=== PATIENT | female | born 2000 | race Caucasian/White ===

== ENCOUNTER 2019-04-06 06:11 | Emergency (ER) | payer BC ==
[~2019-04-06] VITALS: Ht 165.1 cm; Wt 68.2 kg
[2019-04-06 06:14] VITALS: BP 118/64; TEMP 97.6
[2019-04-06] MEDS ORDERED: MARLISSA 30 MCG1 TAB PO (06:25)
[2019-04-06] MEDS ORDERED: CELEXA10 MG PO (06:26)
[2019-04-06 07:26] VITALS: PULSE 64
== END 2019-04-06 07:28 | disposition home or self-care (01) ==
LOC: COL.ER 06:11
DX: R51 Headache (principal); F17.210 Nicotine dependence, cigarettes, uncomplicated; Z90.89 Acquired absence of other organs; Z86.69 Personal history of other diseases of the nervous system and sense organs
CPT/HCPCS: J1200; J2765

== ENCOUNTER 2022-07-20 18:05 | Inpatient (IN) | payer BC, MEDICAID ==
[~2022-07-20] VITALS: Ht 165.1 cm; Wt 94.5 kg
[~2022-07-20 18:05] MED LIST: CELEXA10 MG PO; MARLISSA 30 MCG1 TAB PO
[2022-07-23] MEDS ORDERED: PRENATAL (09:31)
[2022-07-23] MEDS ORDERED: FIORICET 325 MG1 TA1 PO (09:32)
[2022-07-25] VITALS (11 sets, daily range): BP systolic 111–134; BP diastolic 64–77; PULSE 75–90; TEMP 97.3–97.9
--- NOTE | 2022-07-25 18:55 | NUR ---
Pt ambulatory to LDR 2 with significant other. Clean gown on. EFM and TOCO explained and applied. Pt denies contractions, leaking of fluids or vaginal bleeding. Reports good movement. Plan of care and cook balloon insertion explained to pt and spouse. Questions answered. VS taken. 1914: IV started and labs obtained via IV site. LR bolus infusing with out difficulty. 1952: at bedside and explained procedure. Pt denies further questions. Pt assisted into footplates for cook balloon insertion. 2004: Cook balloon inserted at this time. 55mls inserted into uterine balloon by provider. 40mls inserted into vaginal balloon by provider. Rest of night plan of care explained by provider. Orders obtained to start pitocin per protocol and go up every 30mins with a max of 10mus/hr. Pt can receive an epidural if laboring. Call provider when balloon falls out but can be thrown away and to start increasing pitocin. 2009: Ultrasound completed by provider. Vertex presentation noted. 2029: Pitocin explained and started at 2mus/hr per protocol.
[2022-07-25 19:45] LABS: BASO % 0.2 % (0.0-2.0); EOS % 0.2 % (0.0-4.0); GRAN # 9.8 K/mm3 (1.4-6.5); GRAN % 74.3 % (42.2-75.2); HEMOGLOBIN 12.6 g/dl (12.5-16.0); LYMPH # 2.6 K/mm3 (1.2-3.4); LYMPH % 19.3 % (20.0-51.0); MEAN CELL VOLUME 86 fl (80.0-100.0); MEAN CORPUSCULAR HEMOGLOBIN 30 pg (27-31); MEAN CORPUSCULAR HGB CONC 35 g/dl (33.0-37.0); MEAN PLATELET VOLUME 12.4 fl (7.4-10.4); MONO # 0.7 K/mm3 (0.1-0.6); MONO % 5.5 % (1.7-9.3); PLATELET COUNT 199 K/mm3 (130-400); RED BLOOD COUNT 4.16 M/mm3 (4.10-5.30); REDCELL DISTRIBUTION WIDTH-CV 11.8 % (11.5-14.5)
[2022-07-25 19:48] LABS: HEMATOCRIT 35.9 % (37.0-47.0)
--- NOTE | 2022-07-25 22:31 | NUR ---
[id number]: Pt off monitor and in the restroom trying to have a bowel movement.
[2022-07-26] VITALS (71 sets, daily range): BP systolic 98–137; BP diastolic 53–82; PULSE 64–96; TEMP 97.4–98.9
--- NOTE | 2022-07-26 01:44 | NUR ---
Pt off monitor to use restroom. 0150: Pt called out stating her balloon fell out on toliet. Pt assisted back to bed. SVE /-3. Pericare completed. Pt reports not really feedling contraction. 0204: called and updated on pt's status. See physican notification. Pt updated on new plan of care. Call light within reach.
--- NOTE | 2022-07-26 04:19 | NUR ---
[id number]: Difficulty tracing contractions due to maternal position.
--- NOTE | 2022-07-26 07:10 | NUR ---
0710- PATIENT REPOSITIONED TO SITTING ON EDGE OF BED FOR EPIDURAL PLACEMENT. DIFFICULTY TRACINF EFM AND TOCO DUE TO MATERNAL POSITIONING. THIS RN AT BEDSIDE PALPATING REGULAR MODERATE CONTRACTIONS. 0716- SHIRA LANDAVERDE AT BEDSIDE FOR EPIDURAL PLACEMENT. EDUCATES PT ON PROCEDURE AND RISKS. PT DENIES FURTHER QUESTIONS OR CONCERNS. 0720: SINGLE SHOT PER SHIRA LANDAVERDE. PATIETN TOLERATED PROCEDURE WELL.
--- NOTE | 2022-07-26 08:24 | NUR ---
0824- AT BEDSIDE. SVE /-3. AROM WITH CLEAR FLUID AT THIS TIME. CATEGORY 1 EFM TRACING FOLLOWING AROM.
--- NOTE | 2022-07-26 12:54 | NUR ---
AT BEDSIDE, SVE /-1. EVALUATING EFFM/TOCO STRIP. NO NEW ORDERS AT THIS TIME.
--- NOTE | 2022-07-26 12:57 | NUR ---
1257: PITOCIN OFF. AT BEDSIDE TO EVALUATE. RECURRENT LATE DECELERATIONS. MODERATE VARIABILITY. CONTRACTIONS MODERATE WITH PALPATION Q1.5-2MIN APART. PT PLACED IN LEFT LATERAL POSITION TO RECOVER. 1310: RECURRENT LATE DECELERATIONS CONTINUE. PITOCIN REMAINS OFF. LR BOLUS INFUSING. PT PLACED IN KNEE CHEST POSITION. O2 ON VIA MASK AT 10L. THIS NURSE REMAINS AT BEDSIDE. REMAINS ON UNIT AND UPDATED ON CURRENT STATUS. 1330: AT BEDSIDE. PT REMAINS IN KNEE CHEST. SUBTLE LATE DECELERATIONS CONTINUE. PT PLACED IN WEDGE LEFT POSITION, SVE PER "UNCHANGED" FROM PREVIOUS, /1. EFM TRACING MODERATE VARIABILITY, NO DECELS AT THIS TIME. AXILLARY TEMP 97.6. MATERNAL VITAL SIGNS STABLE. VORB PER TO RESTART PITOCIN AT 2MU @ 1400. UPDATE HIM NEEDED.
--- NOTE | 2022-07-26 14:25 | NUR ---
AT BEDSIDE. SVE /0. EFM TRACING MODERATE VARIABILITY. NO LATE DECELS AT THIS TIME. VORB PER TO RESTART PITOCIN @ 2MU AT THIS TIME. REMAINS ON UNIT.
--- NOTE | 2022-07-26 14:53 | NUR ---
1450: AKHIL HOSPICE VOLUNTEER AT BEDSIDE. PT C/O NO RELIEF WITH CURRENT EPIDURAL. UNABLE TO BREATHE THROUGH CONTRACTTIONS. PT TO SITTING POSITION FOR EPIDURAL ASSESSMENT, DIFFICULTY TRACING EFM/TOCO DUE TO MATERNAL POSITIONING. PER [facility]IL HOSPICE VOLUNTEER EPIDURAL HAS FALLEN OUT. REMOVED PER AKHIL AT THIS TIME. 1453: SINGLE SHOT PER SHIRA LANDAVERDE. PT TOLERATED PROCEDURE WELL.
--- NOTE | 2022-07-26 16:00 | NUR ---
1600Bedside report from Candelario Viera RN. This RN assumes care of pt. Pt pushing with contractions with Dr. Prieto at bedside. Strong maternal effort. Moves vertex well. 1619Spontaneous vaginal delivery of viable female . To mother's chest where dried and stimulated by nursery RN. Pitocin paused. 1621Cord clamped x2 and cut by father of . Care of assumed by Sylvia Delgado RN. 1627Spontaneous and intact delivery of placenta. Pitocin to 333ml/hr per orders. Perineum intact. Fundus firm, midline, and bleeding minimal. Mariajose care provided, pads changed, ice pack to perineum. Plan of care and safety precautions reviewed. See anesthesia record, doctor dictation, and nurses notes.
--- NOTE | 2022-07-26 18:05 | NUR ---
1805Teddy. Beto TIRE MOLD ENGRAVER at bedside and removes epidural catheter. See anesthesia notes.
--- NOTE | 2022-07-26 21:30 | NUR ---
PT UP TO BATHROOM VIA BRAD STEADY, TOLERATED WELL. ABLE TO VOID 600ML WITHOUT DIFFICULTY. ASSISTED WITH PERICARE, ICE PACK, PERIPAD, AND MESH UNDERWEAR APPLIED, GOWN CHANGED. PT TO VIA BRAD STEADY, TOLERATED WELL. ORIENTED TO ROOM. DENIES PAIN AT THIS TIME.
[2022-07-27 01:15] VITALS: BP 92/51; PULSE 74; TEMP 97.6
[2022-07-27 06:19] LABS: HEMATOCRIT 34.9 % (37.0-47.0)
[2022-07-27] MEDS ORDERED: IBU600 MG PO (08:20)
[2022-07-27 09:30] VITALS: BP 115/60; PULSE 91; TEMP 97.8
--- NOTE | 2022-07-27 09:54 | NUR ---
Initial visit attempt; Patient sleeping, Russian History Professor left card of congratulations and God's blessings for the of their daughter and information regarding the availability of [facility] at [facility].
[2022-07-27 13:00] VITALS: BP 107/61; PULSE 75
--- NOTE | 2022-07-27 17:45 | NUR ---
Discharge instructions and follow up care reviewed with pt and at the bedside. Both verbalized an understanding, agreed with the plan and states no questions or concerns at this time.
== END 2022-07-27 18:10 | disposition home or self-care (01) | DRG 806 ==
LOC: OB → LDR 07-25 19:24 → OB 07-26 21:30
PROVIDERS: ADMIT Obstetrics & Gynecology
PROC: 10E0XZZ Delivery of Products of Conception, External Approach (ICD-10-PCS; principal; 2022-07-26)
PROC: 3E033VJ Introduction of Other Hormone into Peripheral Vein, Percutaneous Approach (ICD-10-PCS; 2022-07-26)
PROC: 10907ZC Drainage of Amniotic Fluid, Therapeutic from Products of Conception, Via Natural or Artificial Opening (ICD-10-PCS; 2022-07-26)
DX: O36.5930 Maternal care for other known or suspected poor fetal growth, third trimester, not applicable or unspecified (principal); O41.03X0 Oligohydramnios, third trimester, not applicable or unspecified; Z37.0 Single live birth; O99.344 Other mental disorders complicating childbirth; Z3A.39 39 weeks gestation of pregnancy; F41.9 Anxiety disorder, unspecified; O99.334 Smoking (tobacco) complicating childbirth; F17.210 Nicotine dependence, cigarettes, uncomplicated; H91.90 Unspecified hearing loss, unspecified ear; O99.892 Other specified diseases and conditions complicating childbirth; O76 Abnormality in fetal heart rate and rhythm complicating labor and delivery
CPT/HCPCS: J2590; J2795; J7120

== ENCOUNTER 2022-07-23 08:58 | Outpatient (CLI) | payer BC, MEDICAID ==
[~2022-07-23] VITALS: Ht 165.1 cm; Wt 94.3 kg
--- NOTE | 2022-07-23 09:15 | NUR ---
Pt arrived on unit for scheduled NST. Pt reports feeling occasional contractions, denies any leaking of fluid or vaginal bleeding and reports normal movement. EFM and toco monitors started. Vital signs WNL. Plan of care for NST reviewed with pt and at the bedside.
--- NOTE | 2022-07-23 09:25 | NUR ---
Dr. Prieto at the bedside. FHR tracing reviewed.
[2022-07-23] MEDS ORDERED: PRENATAL (09:31)
[2022-07-23] MEDS ORDERED: FIORICET 325 MG1 TA1 PO (09:32)
--- NOTE | 2022-07-23 09:40 | NUR ---
Dr. Prieto on the unit. FHR tracing reviewed. Orders for discharge home received.
== END 2022-07-23 09:45 | disposition home or self-care (01) ==
LOC: LDRO
DX: O36.5930 Maternal care for other known or suspected poor fetal growth, third trimester, not applicable or unspecified (principal); Z3A.38 38 weeks gestation of pregnancy